=== PATIENT | female | born 1985 | race Caucasian/White ===

== ENCOUNTER 2019-09-21 10:55 | Emergency (ER) | payer MEDICAID ==
[~2019-09-21] VITALS: Ht 162.6 cm; Wt 198.2 kg
--- NOTE | 2019-09-21 11:35 | NUR ---
TRIAGE VS CORRECTED BY NINOSKA SHARIF. VS UPDATED ON ARRIVAL TO ROOM. HR 103, SAT ON 3LITERS @ 99-100%. PT STATES OUT OF MEDS FOR FIVE DAYS. +CONGESTION, PERIPHERAL EDEMA, RASH PER PT. OXYGEN CANISTER OUT WELL REFLECTING 89% SAT FROM TRIAGE.
--- NOTE | 2019-09-21 12:16 | NUR ---
assumed care of pt labs in prog. as
[2019-09-21 12:19] LABS: BASOPHILS # (AUTO) 0.02 x10^3/uL (0-0.1); BASOPHILS % (AUTO) 0 % (0-1); EOSINOPHILS # (AUTO) 0.39 x10^3/uL (0-0.4); EOSINOPHILS % (AUTO) 3 % (1-7); LYMPHOCYTES % (AUTO) 18 % (22-44); MD NO; MEAN CORPUSCULAR HEMOGLOBIN 25.8 pg (27.0-34.8); MEAN CORPUSCULAR HGB CONC 32.3 g/dL (32.4-35.8); MEAN CORPUSCULAR VOLUME 79.8 fL (80-100); MEAN PLATELET VOLUME 8.6 fL (7.4-10.4); MONOCYTES % (AUTO) 5 % (2-9); NEUTROPHILS # (AUTO) 8.96 x10^3/uL (1.8-6.8); NEUTROPHILS % (AUTO) 74 % (42-75); PLATELET COUNT 276 x10^3/uL (130-400); RED BLOOD COUNT 5.16 x10^6/uL (3.82-5.3)
[2019-09-21 12:31] LABS: ALANINE AMINOTRANSFERASE 11 U/L (12-78); ALBUMIN 2.5 g/dL (3.4-5.0); ANION GAP 6 mmol/L (5-15); CALCIUM 8.6 mg/dL (8.5-10.1); CHLORIDE 104 mmol/L (98-107); CREATININE 0.85 mg/dL (0.55-1.02)
[2019-09-21 12:36] LABS: ALKALINE PHOSPHATASE 83 U/L (45-117); BILIRUBIN,TOTAL 0.4 mg/dL (0.2-1.0); TOTAL PROTEIN 8.7 g/dL (6.4-8.2); TROPONIN I < 0.015 ng/mL (0.000-0.045)
[2019-09-21 12:38] VITALS: BP 120/67
--- NOTE | 2019-09-21 12:38 | NUR ---
PT AWAITING LAB/CXR RESULTS. NAD. VSS.
--- NOTE | 2019-09-21 12:50 | NUR ---
LABS/CXR RESULTS RECHECK.
== END 2019-09-21 13:27 | disposition home or self-care (01) ==
LOC: ED 12:28
DX: R60.0 Localized edema (principal); R07.89 Other chest pain; Z99.81 Dependence on supplemental oxygen; Z76.0 Encounter for issue of repeat prescription
CPT/HCPCS: 36415; 71045; 80053; 83880; 84484; 85025; 93005; 99284